=== PATIENT | female | born 1970 | race Caucasian/White ===

== ENCOUNTER → 2018-09-04 | Day surgery (SDC) | payer OTHER ==
[~2018-09-04] MED LIST: DICL75TA PO; DICY10CA3 PO; IV RINGERS,LACTATED 1000ML 1,000 ML IV SCH; LIDOCAINE 2% PF 5 ML VIAL. ONE; PROPOFOL 40 ML IV ONE; SUCR1TAB PO; VALA500T PO
[2018-09-04 08:55] VITALS: BP 140/83
== END ==
LOC: ENDOS 07:23
PROVIDERS: ATTEND Internal Medicine Gastroenterology
DX: Z12.11 Encounter for screening for malignant neoplasm of colon (principal); K64.0 First degree hemorrhoids; K29.50 Unspecified chronic gastritis without bleeding; K21.0 Gastro-esophageal reflux disease with esophagitis; F32.9 Major depressive disorder, single episode, unspecified; B96.81 Helicobacter pylori [H. pylori] as the cause of diseases classified elsewhere; E78.00 Pure hypercholesterolemia, unspecified; G43.909 Migraine, unspecified, not intractable, without status migrainosus; Z72.89 Other problems related to lifestyle; Z79.899 Other long term (current) drug therapy; Z90.49 Acquired absence of other specified parts of digestive tract; Z98.51 Tubal ligation status; Z98.890 Other specified postprocedural states
CPT/HCPCS: 43235; 45378; J2001; J2704